=== PATIENT | male | born 1950 | race Caucasian/White ===

== ENCOUNTER 2018-07-07 06:57 | Day surgery (SDC) | payer OTHER, MEDICARE ==
[2018-07-07 07:21] VITALS: TEMP 97.6
[2018-07-07 09:37] VITALS: BP 111/65; PULSE 55
--- NOTE | 2018-07-08 09:16 | PATH ---
Surgical Pathology Report Patient Name: UDAY RAMÍREZ [facility]. Rec. #: [id number] /Age/Gender: 1950 (Age: 67) / M Account: [id number] Location: [facility]-ENDOSCOPY Taken: 07/07/2018 Received: 07/07/2018 Reported: 07/08/2018 Physicians: Payton Easton M.D. Specimen(s) Received A: BX CECUM POLYP B: BX DISTAL RIGHT COLON POLYP Clinical History Screening Postoperative diagnosis: Colon polyps Final Diagnosis A. CECUM, POLYP, POLYPECTOMY: TUBULAR ADENOMA. B. DISTAL RIGHT COLON, POLYPS, POLYPECTOMY: TUBULAR ADENOMA(S). Electronically Signed Danika Monk M.D. Gross Description A. Received in formalin, labeled "polyp cecum" are 2 rodríguez, irregular portions of soft tissue measuring 0.2 and 0.3 cm. in greatest dimension. The specimens are submitted in toto in one cassette. B. Received in formalin, labeled "polyp distal right colon" are 6 rodríguez, irregular portions of soft tissue ranging from 0.2-1.3 cm. in greatest dimension. The specimens are submitted in toto in one cassette. DL/07/07/2018 saudi07/07/2018
== END 2018-07-07 09:37 | disposition home or self-care (01) ==
LOC: JASU-ENDO 06:57
PROVIDERS: ATTEND Internal Medicine Gastroenterology
PROC: 0DBH8ZX Excision of Cecum, Via Natural or Artificial Opening Endoscopic, Diagnostic (ICD-10-PCS; 2018-07-07)
PROC: 0DBK8ZX Excision of Ascending Colon, Via Natural or Artificial Opening Endoscopic, Diagnostic (ICD-10-PCS; principal; 2018-07-07 08:00)
DX: Z12.11 Encounter for screening for malignant neoplasm of colon (principal); D12.2 Benign neoplasm of ascending colon; D12.0 Benign neoplasm of cecum; K64.8 Other hemorrhoids
CPT/HCPCS: 88305-TC

== ENCOUNTER 2021-09-11 04:32 | Day surgery (SDC) | payer OTHER, MEDICARE ==
[2021-09-11 07:24] VITALS: BMI 27.4
[2021-09-11 08:33] VITALS: TEMP 97.8
[2021-09-11 09:18] VITALS: BP 113/79; PULSE 58
== END 2021-09-11 09:08 | disposition home or self-care (01) ==
LOC: JASU-ENDO 04:32
PROVIDERS: ATTEND Internal Medicine Gastroenterology
PROC: 0DBL8ZX Excision of Transverse Colon, Via Natural or Artificial Opening Endoscopic, Diagnostic (ICD-10-PCS; 2021-09-11)
PROC: 0DBN8ZX Excision of Sigmoid Colon, Via Natural or Artificial Opening Endoscopic, Diagnostic (ICD-10-PCS; 2021-09-11)
PROC: 0DBM8ZX Excision of Descending Colon, Via Natural or Artificial Opening Endoscopic, Diagnostic (ICD-10-PCS; principal; 2021-09-11 08:00)
DX: Z12.11 Encounter for screening for malignant neoplasm of colon (principal); D12.4 Benign neoplasm of descending colon; D12.5 Benign neoplasm of sigmoid colon; D12.3 Benign neoplasm of transverse colon; K64.8 Other hemorrhoids; Z86.010 Personal history of colon polyps
CPT/HCPCS: 88305-TC